=== PATIENT | male | born 1970 | race Caucasian/White ===

== ENCOUNTER 2016-06-11 22:58 | Emergency (ER) | payer SELFPAY ==
[~2016-06-11] VITALS: Ht 177.8 cm; Wt 81.8 kg
[2016-06-11 23:00] VITALS: Ht 177.8 cm; Wt 81.8 kg
[2016-06-11] MEDS ORDERED: ALBUTEROL 0.083% (NEB) 2.5 MG/3 ML AMP INH STA (23:04)
[2016-06-11] MEDS ORDERED: FAMOTIDINE 20 MG INJ IV STA (23:04)
[2016-06-11] MEDS ORDERED: METHYLPREDNISOLONE 125 MG INJ IV STA (23:04)
[2016-06-11] MEDS ORDERED: DIPHENHYDRAMINE 50 MG INJ IV STA (23:04)
[2016-06-12] MEDS ORDERED: CHLO25CA9 PO (02:11)
--- NOTE | 2016-06-12 02:11 | ERD ---
ER Documentation Chief Complaint Date/Time DATE: 06/12/16 TIME: 02:10 Chief Complaint BIBA [id number],c/o difficulty swallowing after taking Belsomra HPI This is a 46-year-old male brought in by [facility] complaining of difficulty swallowing after taking sleep medication. Denies any fevers or chills. Patient recently quit drinking alcohol and was in placed on a few medications to help him cope. The sleep medication he took caused an allergic reaction 5- 10 minutes immediately after he took it. Patient will start was closing and is having difficulty breathing. ROS All systems reviewed and are negative except as per history of present illness. Allergies Allergies: Coded Allergies: No Known Allergy (Unverified , 06/11/16) Physical Exam Vitals Vital Signs Date Time Temp Pulse Resp B/P Pulse Ox O2 Delivery O2 Flow Rate FiO2 06/12/16 00:32 70 30 99 21 06/11/16 23:00 99.2 98 18 136/92 100 Physical Exam Const: [] Head: Atraumatic Eyes: Normal Conjunctiva ENT: Normal External Ears, Nose and Mouth. Neck: Full range of motion..~ No meningismus. Resp: Clear to auscultation bilaterally Cardio: Regular rate and rhythm, no murmurs Abd: Soft, non tender, non distended. Normal bowel sounds Skin: No petechiae or rashes Back: No midline or flank tenderness Ext: No cyanosis, or edema Neur: Awake and alert Psych: Normal Mood and Affect Results 24 hrs Current Medications Medications (Trade) Dose Ordered Sig/Cristina Route PRN Reason Start Time Stop Time Status Last Admin Dose Admin Diphenhydramine HCl (Benadryl) 50 mg ONCE STAT IV 06/11/16 23:04 06/11/16 23:06 DC 06/11/16 23:14 Famotidine (Pepcid Iv) 20 mg ONCE STAT IV 06/11/16 23:04 06/11/16 23:06 DC 06/11/16 23:14 Methylprednisolone Sodium Succinate (Solu-Medrol) 125 mg ONCE STAT IV 06/11/16 23:04 06/11/16 23:06 DC 06/11/16 23:14 Albuterol (Proventil 0.083% (Neb)) 5 mg ONCE STAT INH 06/11/16 23:04 06/11/16 23:06 DC 06/12/16 00:28 Procedures/MDM Medical decision-makin-year-old male in no acute allergic reaction. At this point is clinically stable for outpatient management patient be discharged home. Departure Diagnosis: Primary Impression: Allergic reaction Encounter type: initial encounter Qualified Code: T78.40XA - Allergic reaction, initial encounter Condition: Stable BON ROD Jun 12, 2016 02:10
[2016-06-12 02:43] VITALS: BP 117/95; PULSE 74; RESP 18
== END 2016-06-12 02:43 | disposition home or self-care (01) ==
LOC: E/R 22:58
DX: R13.10 Dysphagia, unspecified (principal); R40.2142 Coma scale, eyes open, spontaneous, at arrival to emergency department; T50.995A Adverse effect of other drugs, medicaments and biological substances, initial encounter; R40.2252 Coma scale, best verbal response, oriented, at arrival to emergency department; R40.2362 Coma scale, best motor response, obeys commands, at arrival to emergency department; R06.02 Shortness of breath
CPT/HCPCS: 94664; 96374; 96375; 99284; J1200; J2930